=== PATIENT | male | born 1970 | race African-American/Black ===

== ENCOUNTER 2021-03-09 02:26 | Inpatient (IN) | payer MEDICAID ==
[~2021-03-09] VITALS: Ht 182.9 cm; Wt 68.0 kg
[2021-03-09] MEDS ORDERED: ONDANSETRON HCL 4MG/2ML INJ IV STA (03:19)
[2021-03-09] MEDS ORDERED: MORPHINE SULFATE 4 MG/ML CPJ (NOT FOR IM USE) IV STA (03:19)
[2021-03-09] MEDS ORDERED: SODIUM CHLORIDE 0.9% 1,000 ML IV ONE (03:30)
[2021-03-09 03:53] LABS: CHLORIDE 101 mEq/L (98-107)
[2021-03-09 03:56] LABS: BASOPHILS % 0.4 % (0.0-2.0); EOSINOPHILS % 0.7 % (0.0-5.0); HEMOGLOBIN. 17.9 g/dL (14.0-18.0); LYMPHOCYTES % 9.8 % (20.0-50.0); MEAN CORPUSCULAR HEMOGLOBIN 32.5 pg (28.0-32.0); MEAN CORPUSCULAR VOLUME 96.3 fL (80.0-94.0); MEAN PLATELET VOLUME 9.4 fl (7.4-10.4); NEUTROPHILS % 76.1 % (40.0-76.0); PLATELET 295 x1000/uL (130-400); RED BLOOD CELL COUNT 5.51 mill/uL (4.7-6.1); RED CELL DISTRIBUTION WIDTH 12.2 % (11.6-14.6)
[2021-03-09 04:04] LABS: CLARITY URINE CLEAR (CLEAR); COLOR URINE DARK YELLOW (YELLOW); KETONES URINE 1+ (NEGATIVE); LEUKOCYTE ESTERASE URINE NEGATIVE (NEGATIVE); NITRITE URINE NEGATIVE (NEGATIVE); OCCULT BLOOD URINE NEGATIVE (NEGATIVE); PROTEIN URINE 2+ (NEGATIVE); SPECIFIC GRAVITY URINE 1.037 (1.005-1.030)
[2021-03-09] MEDS ORDERED: MORPHINE SULFATE 4 MG/ML CPJ (NOT FOR IM USE) IV PRN (08:45)
[2021-03-09] MEDS ORDERED: DEXT 5%/0.45% NACL KCL 20MEQ/L 1,000 ML IV SCH (08:45)
[2021-03-09] MEDS ORDERED: BUPIVACAINE HCL/PF 0.5% (5MG/ML) 10ML ONE (09:05)
[2021-03-09] MEDS ORDERED: ONDANSETRON HCL 4MG/2ML INJ IV PRN (09:45)
[2021-03-09] MEDS ORDERED: MEPERIDINE HCL/PF 25MG/ML CPJ IV PRN (09:45)
[2021-03-09] MEDS ORDERED: HYDROMORPHONE HCL/PF 2MG/ML CPJ IV PRN (09:45)
[2021-03-09] MEDS ORDERED: LABETALOL 5MG/ML SYR 20 MG/4 ML SYRINGE IV PRN (09:45)
[2021-03-09] MEDS ORDERED: SKIN ADHESIVE 0.7 GM EA TOP ONE (09:48)
[2021-03-09] MEDS ORDERED: NALOXONE HCL 0.4MG/ML VIAL IV PRN (11:00)
[2021-03-09 12:00] VITALS: BP 95/69
[2021-03-09] MEDS ORDERED: ACETAMINOPHEN 650MG SUPP PR PRN (14:00)
[2021-03-09] MEDS ORDERED: IPRATROPIUM/ALBUTEROL 0.5-3(2.5)MG/3ML NEB HHN PRN (14:00)
[2021-03-09 16:00] VITALS: BP_SYST 108; BP_SYST 140; BP_DIAS 65
[2021-03-09] MEDS: DEXT 5%/0.45% NACL KCL 20MEQ/L 1,000 ML IV SCH (16:05)
[2021-03-09] MEDS: ACETAMINOPHEN 650MG SUPP PR PRN (16:40)
[2021-03-09] MEDS: MORPHINE SULFATE 2 MG/ML CPJ (NOT FOR IM USE) IV PRN ×2 (17:01→20:59)
[2021-03-09 20:00] VITALS: BP 94/56
[2021-03-10] VITALS: BP 105/58
[2021-03-10] MEDS: MORPHINE SULFATE 2 MG/ML CPJ (NOT FOR IM USE) IV PRN ×2 (02:15→21:53)
[2021-03-10] MEDS: DEXT 5%/0.45% NACL KCL 20MEQ/L 1,000 ML IV SCH ×2 (02:16→22:28)
[2021-03-10 04:00] VITALS: BP 95/62
[2021-03-10] MEDS: ACETAMINOPHEN 650MG SUPP PR PRN ×2 (07:59→13:37)
[2021-03-10 08:16] VITALS: BP 99/52
[2021-03-10] MEDS ORDERED: BENZONATATE 100MG CAPSULE PO PRN (10:00)
[2021-03-10 12:00] VITALS: BP 106/65
[2021-03-10] MEDS: GUAIFENESIN 600MG ER TABLET PO SCH ×2 (13:36→21:52)
[2021-03-10] MEDS: PIPERACILLIN/TAZOBACTAM 3.375 G in DEXTROSE 5% WATER 50 ML IV SCH ×2 (15:00→21:52)
[2021-03-10 16:00] VITALS: BP 96/58
[2021-03-10 17:33] LABS: HEMATOCRIT. 40.3 % (42.0-52.0); MEAN CORPUSCULAR HEMOGLOBIN 33.4 pg (28.0-32.0); MEAN CORPUSCULAR VOLUME 95.9 fL (80.0-94.0); MEAN PLATELET VOLUME 9.8 fl (7.4-10.4); PLATELET 231 x1000/uL (130-400); RED CELL DISTRIBUTION WIDTH 12.4 % (11.6-14.6)
[2021-03-10 17:57] LABS: CHLORIDE 104 mEq/L (98-107)
[2021-03-10] MEDS ORDERED: ACETAMINOPHEN 650MG/20.3ML UDC PO PRN (19:00)
[2021-03-10 20:00] VITALS: BP 114/76
[2021-03-10] MEDS: ONDANSETRON HCL 4MG/2ML INJ IV PRN (21:52)
[2021-03-10 23:55] LABS: PLATELET ESTIMATE NORMAL
[2021-03-11] VITALS: BP 133/80
[2021-03-11] MEDS: MORPHINE SULFATE 2 MG/ML CPJ (NOT FOR IM USE) IV PRN ×6 (02:18→21:48)
[2021-03-11 04:00] VITALS: BP 130/79
[2021-03-11] MEDS: PIPERACILLIN/TAZOBACTAM 3.375 G in DEXTROSE 5% WATER 50 ML IV SCH ×3 (05:33→21:47)
[2021-03-11 06:05] LABS: CHLORIDE 102 mEq/L (98-107)
[2021-03-11 06:34] LABS: HEMATOCRIT. 40.7 % (42.0-52.0); HEMOGLOBIN. 13.9 g/dL (14.0-18.0); MEAN CORPUSCULAR HEMOGLOBIN 32.8 pg (28.0-32.0); MEAN CORPUSCULAR VOLUME 96.3 fL (80.0-94.0); MEAN PLATELET VOLUME 9.3 fl (7.4-10.4); PLATELET 254 x1000/uL (130-400); RED BLOOD CELL COUNT 4.23 mill/uL (4.7-6.1); RED CELL DISTRIBUTION WIDTH 12.2 % (11.6-14.6)
[2021-03-11 08:00] VITALS: BP 116/76
[2021-03-11] MEDS: DEXT 5%/0.45% NACL KCL 20MEQ/L 1,000 ML IV SCH ×2 (08:00→18:39)
[2021-03-11] MEDS: GUAIFENESIN 600MG ER TABLET PO SCH ×2 (09:27→21:47)
[2021-03-11 12:00] VITALS: BP 121/82
[2021-03-11] MEDS: ONDANSETRON HCL 4MG/2ML INJ IV PRN (13:04)
[2021-03-11 16:00] VITALS: BP 126/76
[2021-03-11 20:00] VITALS: BP 134/93
[2021-03-12] VITALS: BP 134/86
[2021-03-12 04:00] VITALS: BP 128/84
[2021-03-12] MEDS: MORPHINE SULFATE 2 MG/ML CPJ (NOT FOR IM USE) IV PRN ×2 (04:56→18:24)
[2021-03-12] MEDS: DEXT 5%/0.45% NACL KCL 20MEQ/L 1,000 ML IV SCH ×2 (04:59→14:18)
[2021-03-12] MEDS: PIPERACILLIN/TAZOBACTAM 3.375 G in DEXTROSE 5% WATER 50 ML IV SCH ×3 (05:00→22:01)
[2021-03-12 07:47] LABS: CHLORIDE 103 mEq/L (98-107)
[2021-03-12 08:00] VITALS: BP 124/82
[2021-03-12 08:49] LABS: HEMATOCRIT. 41.4 % (42.0-52.0); HEMOGLOBIN. 14.1 g/dL (14.0-18.0); MEAN CORPUSCULAR VOLUME 96.8 fL (80.0-94.0); MEAN PLATELET VOLUME 9.8 fl (7.4-10.4); PLATELET 288 x1000/uL (130-400); RED BLOOD CELL COUNT 4.28 mill/uL (4.7-6.1)
[2021-03-12] MEDS: GUAIFENESIN 600MG ER TABLET PO SCH ×2 (08:49→21:00)
[2021-03-12 12:00] VITALS: BP 120/84
[2021-03-12 12:05] LABS: PLATELET ESTIMATE NORMAL
[2021-03-12 16:00] VITALS: BP 135/75
[2021-03-12 20:00] VITALS: BP 139/87
[2021-03-13] VITALS: BP 145/89
[2021-03-13] MEDS: DEXT 5%/0.45% NACL KCL 20MEQ/L 1,000 ML IV SCH ×3 (01:57→20:18)
[2021-03-13] MEDS: MORPHINE SULFATE 2 MG/ML CPJ (NOT FOR IM USE) IV PRN ×3 (01:58→20:17)
[2021-03-13 04:00] VITALS: BP 135/87
[2021-03-13] MEDS: PIPERACILLIN/TAZOBACTAM 3.375 G in DEXTROSE 5% WATER 50 ML IV SCH ×3 (05:42→23:10)
[2021-03-13 06:23] LABS: PLATELET ESTIMATE NORMAL
[2021-03-13 08:00] VITALS: BP 116/89
[2021-03-13] MEDS: GUAIFENESIN 600MG ER TABLET PO SCH ×3 (09:00→21:00)
[2021-03-13 10:09] LABS: HEMATOCRIT. 43.6 % (42.0-52.0); HEMOGLOBIN. 14.6 g/dL (14.0-18.0); MEAN CORPUSCULAR HEMOGLOBIN 32.1 pg (28.0-32.0); MEAN CORPUSCULAR VOLUME 96.2 fL (80.0-94.0); MEAN PLATELET VOLUME 9.4 fl (7.4-10.4); PLATELET 335 x1000/uL (130-400); RED BLOOD CELL COUNT 4.53 mill/uL (4.7-6.1); RED CELL DISTRIBUTION WIDTH 12.4 % (11.6-14.6)
[2021-03-13 10:22] LABS: CHLORIDE 104 mEq/L (98-107)
[2021-03-13 12:00] VITALS: BP 122/80
[2021-03-13 16:00] VITALS: BP 121/70
[2021-03-13 20:00] VITALS: BP 129/81
[2021-03-14] VITALS: BP 139/86
[2021-03-14 00:07] LABS: PLATELET ESTIMATE NORMAL
[2021-03-14] MEDS: MORPHINE SULFATE 2 MG/ML CPJ (NOT FOR IM USE) IV PRN ×4 (02:21→21:45)
[2021-03-14 04:00] VITALS: BP 145/85
[2021-03-14] MEDS: DEXT 5%/0.45% NACL KCL 20MEQ/L 1,000 ML IV SCH ×2 (05:30→15:32)
[2021-03-14] MEDS: PIPERACILLIN/TAZOBACTAM 3.375 G in DEXTROSE 5% WATER 50 ML IV SCH ×3 (05:31→21:09)
[2021-03-14] MEDS: GUAIFENESIN 600MG ER TABLET PO SCH ×2 (09:00→21:00)
[2021-03-14] MEDS: ONDANSETRON HCL 4MG/2ML INJ IV PRN (10:50)
[2021-03-14] MEDS ORDERED: MORPHINE SULFATE 4 MG/ML CPJ (NOT FOR IM USE) IV PRN (12:45)
[2021-03-14 20:00] VITALS: BP 124/83
[2021-03-15] VITALS: BP 115/82
[2021-03-15] MEDS: DEXT 5%/0.45% NACL KCL 20MEQ/L 1,000 ML IV SCH ×3 (02:44→20:12)
[2021-03-15] MEDS: MORPHINE SULFATE 2 MG/ML CPJ (NOT FOR IM USE) IV PRN ×2 (03:44→14:09)
[2021-03-15] MEDS: PIPERACILLIN/TAZOBACTAM 3.375 G in DEXTROSE 5% WATER 50 ML IV SCH (05:41)
[2021-03-15 07:02] LABS: BASOPHILS % 0.5 % (0.0-2.0); EOSINOPHILS % 1.9 % (0.0-5.0); HEMOGLOBIN. 13.4 g/dL (14.0-18.0); LYMPHOCYTES % 15.3 % (20.0-50.0); MEAN CORPUSCULAR HEMOGLOBIN 33.2 pg (28.0-32.0); MEAN CORPUSCULAR VOLUME 96.1 fL (80.0-94.0); MEAN PLATELET VOLUME 8.8 fl (7.4-10.4); MONOCYTES % 14.4 % (2.0-8.0); NEUTROPHILS % 67.9 % (40.0-76.0); PLATELET 321 x1000/uL (130-400); RED BLOOD CELL COUNT 4.05 mill/uL (4.7-6.1); RED CELL DISTRIBUTION WIDTH 12.1 % (11.6-14.6)
[2021-03-15 07:07] LABS: CHLORIDE 107 mEq/L (98-107)
[2021-03-15 08:00] VITALS: BP 117/63
[2021-03-15] MEDS: GUAIFENESIN 600MG ER TABLET PO SCH ×2 (09:00→20:13)
[2021-03-15 12:00] VITALS: BP 113/63
[2021-03-15] MEDS ORDERED: BISACODYL 10MG SUPP PR NR ×2 (14:00→20:00)
[2021-03-15 16:00] VITALS: BP 125/74
[2021-03-15 20:00] VITALS: BP 124/79
[2021-03-15 23:57] VITALS: BP 113/78
[2021-03-16] MEDS: MORPHINE SULFATE 2 MG/ML CPJ (NOT FOR IM USE) IV PRN ×3 (01:24→21:40)
[2021-03-16 03:51] VITALS: BP 120/74
[2021-03-16] MEDS: DEXT 5%/0.45% NACL KCL 20MEQ/L 1,000 ML IV SCH ×3 (05:41→17:57)
[2021-03-16 08:00] VITALS: BP_SYST 124; BP_SYST 156; BP_DIAS 56; BP_DIAS 73
[2021-03-16 08:15] LABS: HEMATOCRIT. 37.5 % (42.0-52.0); HEMOGLOBIN. 12.8 g/dL (14.0-18.0); MEAN CORPUSCULAR HEMOGLOBIN 32.7 pg (28.0-32.0); MEAN CORPUSCULAR VOLUME 95.9 fL (80.0-94.0); MEAN PLATELET VOLUME 9.1 fl (7.4-10.4); PLATELET 323 x1000/uL (130-400); RED BLOOD CELL COUNT 3.91 mill/uL (4.7-6.1); RED CELL DISTRIBUTION WIDTH 12.2 % (11.6-14.6)
[2021-03-16 08:39] LABS: CHLORIDE 108 mEq/L (98-107)
[2021-03-16] MEDS: GUAIFENESIN 600MG ER TABLET PO SCH ×2 (09:00→20:00)
[2021-03-16 12:00] VITALS: BP 123/71
[2021-03-16] MEDS ORDERED: BISACODYL 10MG SUPP PR NR ×2 (15:00→20:30)
[2021-03-16 15:47] LABS: PLATELET ESTIMATE NORMAL
[2021-03-16 20:00] VITALS: BP 119/73
[2021-03-17] VITALS: BP 113/72
[2021-03-17 04:00] VITALS: BP 113/59
[2021-03-17] MEDS: DEXT 5%/0.45% NACL KCL 20MEQ/L 1,000 ML IV SCH ×2 (04:21→14:08)
[2021-03-17 06:39] LABS: BASOPHILS % 0.6 % (0.0-2.0); EOSINOPHILS % 2.1 % (0.0-5.0); HEMATOCRIT. 36.3 % (42.0-52.0); HEMOGLOBIN. 12.8 g/dL (14.0-18.0); LYMPHOCYTES % 15.3 % (20.0-50.0); MEAN CORPUSCULAR HEMOGLOBIN 33.6 pg (28.0-32.0); MEAN CORPUSCULAR VOLUME 95.3 fL (80.0-94.0); MEAN PLATELET VOLUME 8.9 fl (7.4-10.4); MONOCYTES % 14.9 % (2.0-8.0); NEUTROPHILS % 67.1 % (40.0-76.0); PLATELET 294 x1000/uL (130-400)
[2021-03-17] MEDS: MORPHINE SULFATE 2 MG/ML CPJ (NOT FOR IM USE) IV PRN ×3 (06:52→20:58)
[2021-03-17 07:07] LABS: CHLORIDE 109 mEq/L (98-107)
[2021-03-17 08:00] VITALS: BP 107/57
[2021-03-17] MEDS: GUAIFENESIN 600MG ER TABLET PO SCH ×2 (10:33→20:58)
[2021-03-17 12:00] VITALS: BP 132/77
[2021-03-17 16:00] VITALS: BP 121/76
[2021-03-17 20:00] VITALS: BP 107/57
[2021-03-18] VITALS: BP 119/69
[2021-03-18] MEDS: DEXT 5%/0.45% NACL KCL 20MEQ/L 1,000 ML IV SCH ×3 (00:34→21:16)
[2021-03-18] MEDS: MORPHINE SULFATE 2 MG/ML CPJ (NOT FOR IM USE) IV PRN ×5 (03:46→22:59)
[2021-03-18 04:00] VITALS: BP 116/71
[2021-03-18 06:44] LABS: CHLORIDE 106 mEq/L (98-107)
[2021-03-18 07:13] LABS: PHOSPHORUS 2.5 mg/dL (2.5-4.9)
[2021-03-18 08:00] VITALS: BP 110/68
[2021-03-18] MEDS: GUAIFENESIN 600MG ER TABLET PO SCH ×2 (09:00→21:16)
[2021-03-18 12:00] VITALS: BP 119/70
[2021-03-18 16:00] VITALS: BP 115/72
[2021-03-18 20:00] VITALS: BP 120/72
[2021-03-19] VITALS: BP 112/62
[2021-03-19 04:00] VITALS: BP 123/65
[2021-03-19] MEDS: DEXT 5%/0.45% NACL KCL 20MEQ/L 1,000 ML IV SCH (06:00)
[2021-03-19] MEDS: MORPHINE SULFATE 2 MG/ML CPJ (NOT FOR IM USE) IV PRN ×3 (07:53→20:50)
[2021-03-19] MEDS: GUAIFENESIN 600MG ER TABLET PO SCH ×3 (07:56→20:59)
[2021-03-19 08:00] VITALS: BP 115/73
[2021-03-19 12:00] VITALS: BP 110/66
[2021-03-19] MEDS ORDERED: MORPHINE SULFATE 2 MG/ML CPJ (NOT FOR IM USE) IV PRN (14:45)
[2021-03-19] MEDS: ONDANSETRON HCL 4MG/2ML INJ IV PRN ×2 (14:59→20:58)
[2021-03-19 16:00] VITALS: BP 117/74
[2021-03-20] MEDS: DIPHENHYDRAMINE 50MG/ML VIAL IV PRN (02:32)
[2021-03-20] MEDS: MORPHINE SULFATE 2 MG/ML CPJ (NOT FOR IM USE) IV PRN ×4 (05:07→19:06)
[2021-03-20] MEDS: DEXT 5%/0.45% NACL KCL 20MEQ/L 1,000 ML IV SCH ×3 (05:07→12:25)
[2021-03-20 06:42] LABS: CHLORIDE 103 mEq/L (98-107)
[2021-03-20 06:49] LABS: PHOSPHORUS 2.9 mg/dL (2.5-4.9)
[2021-03-20] MEDS ORDERED: DIATR MEGLU/DIATRIZOATE SOLN 30ML ONE (08:56)
[2021-03-20] MEDS: GUAIFENESIN 600MG ER TABLET PO SCH ×2 (09:00→21:00)
[2021-03-20] MEDS: ONDANSETRON HCL 4MG/2ML INJ IV PRN ×2 (10:10→14:19)
[2021-03-20 12:00] VITALS: BP 113/82
[2021-03-20 16:00] VITALS: BP 136/89
[2021-03-20 20:00] VITALS: BP 122/83
[2021-03-21] VITALS: BP 116/88
[2021-03-21] MEDS: DEXT 5%/0.45% NACL KCL 20MEQ/L 1,000 ML IV SCH ×3 (01:07→18:34)
[2021-03-21] MEDS: MORPHINE SULFATE 2 MG/ML CPJ (NOT FOR IM USE) IV PRN ×4 (01:07→21:40)
[2021-03-21 04:00] VITALS: BP 106/77
[2021-03-21] MEDS: DIPHENHYDRAMINE 50MG/ML VIAL IV PRN (04:38)
[2021-03-21 06:30] LABS: BASOPHILS % 0.5 % (0.0-2.0); HEMATOCRIT. 42.7 % (42.0-52.0); LYMPHOCYTES % 7.9 % (20.0-50.0); MEAN CORPUSCULAR VOLUME 93.9 fL (80.0-94.0); MEAN PLATELET VOLUME 9.2 fl (7.4-10.4); MONOCYTES % 10.7 % (2.0-8.0); NEUTROPHILS % 79.9 % (40.0-76.0); PLATELET 369 x1000/uL (130-400); RED BLOOD CELL COUNT 4.54 mill/uL (4.7-6.1); RED CELL DISTRIBUTION WIDTH 12.6 % (11.6-14.6)
[2021-03-21 06:54] LABS: CHLORIDE 96 mEq/L (98-107)
[2021-03-21] MEDS ORDERED: BUPIVACAINE HCL 0.5% (5MG/ML) 50ML ONE (07:19)
[2021-03-21] MEDS ORDERED: POLYMYXIN B SULFATE 500000 UNITS/VIAL ONE (07:20)
[2021-03-21] MEDS ORDERED: PROPOFOL 200MG/20ML VIAL IV ONE (07:39)
[2021-03-21] MEDS ORDERED: MIDAZOLAM HCL 2 MG/2 ML VIAL ONE (07:47)
[2021-03-21] MEDS ORDERED: FENTANYL CITRATE/PF 50MCG/ML 2ML VIAL ONE ×2 (07:47→09:11)
[2021-03-21] MEDS ORDERED: ONDANSETRON HCL 4MG/2ML INJ IV PRN ×2 (08:00→09:45)
[2021-03-21] MEDS ORDERED: DEXT 5%/0.45% NACL KCL 20MEQ/L 1,000 ML IV SCH (08:00)
[2021-03-21] MEDS ORDERED: METRONIDAZOLE 500 MG PREMIX 100 ML IV ONE (08:35)
[2021-03-21] MEDS: GUAIFENESIN 600MG ER TABLET PO SCH ×2 (09:00→21:00)
[2021-03-21] MEDS: ENOXAPARIN 40MG/0.4ML SYR SUBCUT SCH (09:00)
[2021-03-21] MEDS ORDERED: EPHEDRINE SULFATE 50MG/ML VIAL ONE (09:07)
[2021-03-21] MEDS ORDERED: NEOSTIGMINE METHYLSULFATE 1MG/ML 10 ML VIAL ONE (09:09)
[2021-03-21] MEDS ORDERED: SKIN ADHESIVE 0.7 GM EA TOP ONE (09:24)
[2021-03-21] MEDS ORDERED: FENTANYL CITRATE/PF 50MCG/ML 2ML VIAL IV PRN (09:45)
[2021-03-21] MEDS ORDERED: HYDROMORPHONE HCL/PF 2MG/ML CPJ IV PRN (09:45)
[2021-03-21] MEDS ORDERED: LABETALOL 5MG/ML SYR 20 MG/4 ML SYRINGE IV PRN (09:45)
[2021-03-21] MEDS ORDERED: LACTATED RINGERS 1,000 ML IV SCH (09:45)
[2021-03-21 12:00] VITALS: BP 128/77
[2021-03-21 12:54] LABS: INR 1.4; PARTIAL THROMBOPLASTIN TIME 28.1 sec (23.4-31.0)
[2021-03-21 16:00] VITALS: BP 108/66
[2021-03-21 20:00] VITALS: BP 107/67
[2021-03-22] VITALS: BP 105/61
[2021-03-22] MEDS: DEXT 5%/0.45% NACL KCL 20MEQ/L 1,000 ML IV SCH ×2 (03:12→13:32)
[2021-03-22] MEDS: MORPHINE SULFATE 2 MG/ML CPJ (NOT FOR IM USE) IV PRN ×4 (03:16→20:58)
[2021-03-22 04:00] VITALS: BP 113/72
[2021-03-22 08:00] VITALS: BP 116/71
[2021-03-22] MEDS: GUAIFENESIN 600MG ER TABLET PO SCH ×2 (09:00→21:00)
[2021-03-22] MEDS: ENOXAPARIN 40MG/0.4ML SYR SUBCUT SCH (09:20)
[2021-03-22 12:00] VITALS: BP 111/69
[2021-03-22 16:00] VITALS: BP 114/67
[2021-03-23] MEDS: MORPHINE SULFATE 2 MG/ML CPJ (NOT FOR IM USE) IV PRN ×4 (02:41→22:05)
[2021-03-23] MEDS: DEXT 5%/0.45% NACL KCL 20MEQ/L 1,000 ML IV SCH ×3 (02:42→22:04)
[2021-03-23 08:00] VITALS: BP 110/67
[2021-03-23 08:51] LABS: HEMATOCRIT. 35.3 % (42.0-52.0); HEMOGLOBIN. 11.6 g/dL (14.0-18.0); MEAN CORPUSCULAR HEMOGLOBIN 31.5 pg (28.0-32.0); MEAN PLATELET VOLUME 9.1 fl (7.4-10.4); PLATELET 281 x1000/uL (130-400); RED BLOOD CELL COUNT 3.67 mill/uL (4.7-6.1); RED CELL DISTRIBUTION WIDTH 12.5 % (11.6-14.6)
[2021-03-23 09:26] LABS: CHLORIDE 100 mEq/L (98-107)
[2021-03-23] MEDS: GUAIFENESIN 600MG ER TABLET PO SCH ×2 (09:48→22:04)
[2021-03-23] MEDS: ENOXAPARIN 40MG/0.4ML SYR SUBCUT SCH (09:51)
[2021-03-23 12:00] VITALS: BP 99/64
[2021-03-23 12:01] LABS: PLATELET ESTIMATE NORMAL
[2021-03-23] MEDS: PIPERACILLIN/TAZOBACTAM 3.375 G in DEXTROSE 5% WATER 50 ML IV SCH ×2 (14:29→22:04)
[2021-03-23 16:00] VITALS: BP 100/56
[2021-03-23 20:00] VITALS: BP 100/65
[2021-03-24] MEDS: DEXT 5%/0.45% NACL KCL 20MEQ/L 1,000 ML IV SCH ×2 (05:31→16:12)
[2021-03-24] MEDS: PIPERACILLIN/TAZOBACTAM 3.375 G in DEXTROSE 5% WATER 50 ML IV SCH ×3 (05:31→21:47)
[2021-03-24 08:00] VITALS: BP 101/60
[2021-03-24] MEDS: GUAIFENESIN 600MG ER TABLET PO SCH ×2 (09:00→21:00)
[2021-03-24] MEDS: ENOXAPARIN 40MG/0.4ML SYR SUBCUT SCH (09:00)
[2021-03-24 12:00] VITALS: BP 96/49
[2021-03-24] MEDS: MORPHINE SULFATE 2 MG/ML CPJ (NOT FOR IM USE) IV PRN ×3 (12:01→18:34)
[2021-03-24 16:00] VITALS: BP 111/58
[2021-03-24 20:00] VITALS: BP 84/55
[2021-03-24] MEDS: DIPHENHYDRAMINE 50MG/ML VIAL IV PRN (21:57)
[2021-03-25] MEDS: DEXT 5%/0.45% NACL KCL 20MEQ/L 1,000 ML IV SCH (02:00)
[2021-03-25 04:00] VITALS: BP 98/57
[2021-03-25] MEDS: MORPHINE SULFATE 2 MG/ML CPJ (NOT FOR IM USE) IV PRN ×5 (04:06→20:33)
[2021-03-25 05:18] LABS: BASOPHILS % 0.3 % (0.0-2.0); EOSINOPHILS % 3.1 % (0.0-5.0); HEMATOCRIT. 32.7 % (42.0-52.0); HEMOGLOBIN. 11.3 g/dL (14.0-18.0); LYMPHOCYTES % 10.6 % (20.0-50.0); MEAN CORPUSCULAR HEMOGLOBIN 32.7 pg (28.0-32.0); MEAN CORPUSCULAR VOLUME 94.6 fL (80.0-94.0); MEAN PLATELET VOLUME 9.1 fl (7.4-10.4); MONOCYTES % 12.4 % (2.0-8.0); NEUTROPHILS % 73.6 % (40.0-76.0); PLATELET 271 x1000/uL (130-400); RED BLOOD CELL COUNT 3.46 mill/uL (4.7-6.1); RED CELL DISTRIBUTION WIDTH 12.5 % (11.6-14.6)
[2021-03-25] MEDS: PIPERACILLIN/TAZOBACTAM 3.375 G in DEXTROSE 5% WATER 50 ML IV SCH (06:06)
[2021-03-25 08:00] VITALS: BP 96/61
[2021-03-25] MEDS: ENOXAPARIN 40MG/0.4ML SYR SUBCUT SCH (08:38)
[2021-03-25] MEDS: GUAIFENESIN 600MG ER TABLET PO SCH ×2 (08:38→21:00)
[2021-03-25 08:40] LABS: CLARITY URINE CLOUDY (CLEAR); COLOR URINE YELLOW (YELLOW); KETONES URINE TRACE (NEGATIVE); LEUKOCYTE ESTERASE URINE NEGATIVE (NEGATIVE); NITRITE URINE NEGATIVE (NEGATIVE); OCCULT BLOOD URINE NEGATIVE (NEGATIVE); PH URINE 5.5 (4.5-8.0); PROTEIN URINE TRACE (NEGATIVE); SPECIFIC GRAVITY URINE 1.032 (1.005-1.030)
[2021-03-25] MEDS: DEXT 5%/0.9% NACL 1,000 ML IV SCH ×2 (11:59→21:15)
[2021-03-25 12:00] VITALS: BP 98/58
[2021-03-25 12:25] LABS: CHLORIDE 99 mEq/L (98-107)
[2021-03-25 16:00] VITALS: BP 94/60
[2021-03-25 20:00] VITALS: BP 101/57
[2021-03-26] VITALS: BP 91/47
[2021-03-26 04:00] VITALS: BP 102/53
[2021-03-26 05:53] VITALS: BP 102/53
[2021-03-26 07:23] LABS: BASOPHILS % 0.4 % (0.0-2.0); EOSINOPHILS % 3.3 % (0.0-5.0); HEMATOCRIT. 31.2 % (42.0-52.0); HEMOGLOBIN. 10.7 g/dL (14.0-18.0); LYMPHOCYTES % 12.9 % (20.0-50.0); MEAN CORPUSCULAR HEMOGLOBIN 32.6 pg (28.0-32.0); MEAN CORPUSCULAR VOLUME 95.1 fL (80.0-94.0); MEAN PLATELET VOLUME 8.7 fl (7.4-10.4); MONOCYTES % 14.4 % (2.0-8.0); PLATELET 303 x1000/uL (130-400); RED BLOOD CELL COUNT 3.28 mill/uL (4.7-6.1); RED CELL DISTRIBUTION WIDTH 12.3 % (11.6-14.6)
[2021-03-26 08:00] VITALS: BP 115/68
[2021-03-26 08:26] LABS: CHLORIDE 102 mEq/L (98-107)
[2021-03-26 08:37] LABS: PHOSPHORUS 2.2 mg/dL (2.5-4.9)
[2021-03-26] MEDS: ENOXAPARIN 40MG/0.4ML SYR SUBCUT SCH (09:00)
[2021-03-26] MEDS: GUAIFENESIN 600MG ER TABLET PO SCH ×2 (09:00→20:16)
[2021-03-26] MEDS: DEXT 5%/0.9% NACL 1,000 ML IV SCH (09:42)
[2021-03-26] MEDS ORDERED: MORPHINE SULFATE 4 MG/ML CPJ (NOT FOR IM USE) IV PRN (10:15)
[2021-03-26] MEDS ORDERED: MORPHINE SULFATE 2 MG/ML CPJ (NOT FOR IM USE) IV PRN (10:15)
[2021-03-26] MEDS: MORPHINE SULFATE 2 MG/ML CPJ (NOT FOR IM USE) IV PRN ×2 (10:38→18:40)
[2021-03-26] MEDS ORDERED: MELATONIN 3MG TABLET PO PRN (11:15)
[2021-03-26] MEDS ORDERED: SODIUM PHOS,M-BASIC-D-BASIC 20 MM in DEXT 5% WATER 250 ML IV SCH (13:00)
[2021-03-26 16:00] VITALS: BP 103/58
[2021-03-26 20:00] VITALS: BP 94/60
[2021-03-27] VITALS: BP 99/52
[2021-03-27 04:00] VITALS: BP 107/61
[2021-03-27 08:00] VITALS: BP 100/57
[2021-03-27] MEDS: ENOXAPARIN 40MG/0.4ML SYR SUBCUT SCH (08:13)
[2021-03-27] MEDS: GUAIFENESIN 600MG ER TABLET PO SCH (08:13)
[2021-03-27 10:53] VITALS: BP 100/57
[2021-03-27 12:00] VITALS: BP 93/55
== END 2021-03-27 13:55 | disposition home or self-care (01) | DRG 230 ==
LOC: ER 02:26 → 6EST 04:49 → ENRESERV 09:27
PROVIDERS: ADMIT Internal Medicine; ATTEND Internal Medicine
PROC: 0YU50JZ Supplement Right Inguinal Region with Synthetic Substitute, Open Approach (ICD-10-PCS; principal; 2021-03-09)
PROC: 0DB80ZZ Excision of Small Intestine, Open Approach (ICD-10-PCS; 2021-03-21)
PROC: 0D180Z8 Bypass Small Intestine to Small Intestine, Open Approach (ICD-10-PCS; 2021-03-21)
DX: K40.30 Unilateral inguinal hernia, with obstruction, without gangrene, not specified as recurrent (principal); N17.0 Acute kidney failure with tubular necrosis; K55.019 Acute (reversible) ischemia of small intestine, extent unspecified; K55.9 Vascular disorder of intestine, unspecified; R65.10 Systemic inflammatory response syndrome (SIRS) of non-infectious origin without acute organ dysfunction; D72.821 Monocytosis (symptomatic); R80.9 Proteinuria, unspecified; Z20.822 Contact with and (suspected) exposure to COVID-19
CPT/HCPCS: 36415; 71045; 74018; 74176; 74250; 80048; 80053; 81003; 83735; 84100; 84145; 84484; 85025; 86850; 86900; 87426; 88305; 93005; 97162; 99285; C1781; J1100; J1170; J1200; J1650; J2250; J2270; J2405; J2543; J2704; J2710; J3010; J3490; J7030; J7042; J7060; Q9963

== ENCOUNTER 2021-10-11 08:13 | Inpatient (IN) | payer MEDICAID ==
[~2021-10-11] VITALS: Ht 182.9 cm; Wt 68.0 kg
[2021-10-11] MEDS ORDERED: SENN15TA PO (08:48)
[2021-10-11] MEDS ORDERED: ACETAMINOPHEN WITH CODEINE 300/30MG TABLET PO STA (08:56)
[2021-10-11 09:17] LABS: BASOPHILS % 0.7 % (0.0-2.0); EOSINOPHILS % 5.5 % (0.0-5.0); HEMATOCRIT. 35.5 % (42.0-52.0); HEMOGLOBIN. 11.7 g/dL (14.0-18.0); LYMPHOCYTES % 27.3 % (20.0-50.0); MEAN CORPUSCULAR HEMOGLOBIN 31.3 pg (28.0-32.0); MEAN CORPUSCULAR VOLUME 95.1 fL (80.0-94.0); MEAN PLATELET VOLUME 8.3 fl (7.4-10.4); NEUTROPHILS % 55.5 % (40.0-76.0); PLATELET 215 x1000/uL (130-400); RED BLOOD CELL COUNT 3.73 mill/uL (4.7-6.1); RED CELL DISTRIBUTION WIDTH 13.5 % (11.6-14.6)
[2021-10-11 09:20] LABS: CHLORIDE 112 mEq/L (98-107)
[2021-10-11 09:23] LABS: INR 1.1; PROTHROMBIN TIME 11.5 sec (9.6-11.0)
[2021-10-11 21:51] VITALS: BP 132/74
[2021-10-11 22:00] VITALS: BP 132/74
[2021-10-11] MEDS ORDERED: MORPHINE SULFATE 2 MG/ML CPJ (NOT FOR IM USE) IV PRN (23:00)
[2021-10-11] MEDS ORDERED: ONDANSETRON HCL 4MG/2ML INJ IV PRN (23:00)
[2021-10-12] VITALS (7 sets, daily range): BP systolic 109–116; BP diastolic 59–63
[2021-10-12] MEDS: DEXT 5%/0.45% NACL KCL 20MEQ/L 1,000 ML IV SCH ×3 (00:30→13:21)
[2021-10-12] MEDS ORDERED: LACTULOSE 20G/30ML UDC PO PRN (13:45)
[2021-10-12] MEDS ORDERED: DOCUSATE SODIUM 250MG CAPSULE PO SCH (14:30)
== END 2021-10-12 20:17 | disposition home or self-care (01) | DRG 247 ==
LOC: ER 08:38 → 8WST 15:00 → EDBEDREQ 15:08 → EDBEDREQSVC 18:08 → ENRESERV 19:55 → CANRESERV 19:55 → ENRESERV 19:57
PROVIDERS: ADMIT Internal Medicine; ATTEND Internal Medicine
DX: K56.609 Unspecified intestinal obstruction, unspecified as to partial versus complete obstruction (principal); E87.8 Other disorders of electrolyte and fluid balance, not elsewhere classified; E83.51 Hypocalcemia; Z98.890 Other specified postprocedural states
CPT/HCPCS: 36415; 74018; 74176; 80053; 85025; 99285; J2270